=== PATIENT | female | born 1990 | race Caucasian/White ===

== ENCOUNTER 2018-10-27 04:23 | Inpatient (IN) | payer OTHER ==
[2018-10-27] MEDS ORDERED: MAG HYDROX/AL HYDROX/SIMETH 30 ML UNIT-DOSE CUP PO ONE (04:36)
[2018-10-27] MEDS ORDERED: morphine CARPU-JECT 2 MG/1 ML DISP.SYRIN IVPUSH ONE (04:36)
[2018-10-27] MEDS ORDERED: SODIUM CHLORIDE 0.9% 500 ML INFUS.BAG IV ONE (04:36)
--- NOTE | 2018-10-27 04:37 | PDOC ---
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 She ate pizza, ice cream and cheese doodles and she likely has gas or biliary colic. Her dad had his GB removed. Pt had her appy removed Timing/Duration: momentarily, 1/2 hour Severity: severe Associated Symptoms: reports: chest pain Past History - Travel Traveled outside of the country in the last 30 days: No Close contact w/someone who was outside of country & ill: No - Past Medical History Allergies/Adverse Reactions: Allergies Allergy/AdvReac Type Severity Reaction Status Date / Time No Known Allergies Allergy Verified 10/27/18 04:58 Home Medications: Ambulatory Orders NK [No Known Home Medication] 10/27/18 - Surgical History Abdominal Surgery: Yes Appendectomy: Yes (2012) - Suicide/Smoking/Psychosocial Hx Smoking History: Never smoked Have you smoked in the past 12 months: No Number of Cigarettes Smoked Daily: 2 Hx Alcohol Use: No Drug/Substance Use Hx: No Substance Use Type: None Review of Systems - Review of Systems Constitutional: No: Symptoms Reported, See HPI, Chills, Diaphoresis, Fever, Loss of Appetite, Malaise, Night Sweats, Weakness, Weight Stable, Unintentional Wgt. Loss, Unexplained wgt Loss, Other HEENTM: No: Symptoms Reported, See HPI, Eye Pain, Blurred Vision, Tearing, Recent change in vision, Double Vision, Cataracts, Ear Pain, Ocular Prothesis, Ear Discharge, Nose Pain, Nose Congestion, Tinnitus, Nose Bleeding, Hearing Loss , Throat Pain, Throat Swelling, Mouth Pain, Dental Problems, Difficulty Swallowing, Mouth Swelling, Other Respiratory: No: Symptoms reported, See HPI, Cough, Orthopnea, Shortness of Breath, SOB with Exertion, SOB at Rest, Stridor, Wheezing, Productive cough, Hemoptysis, Other Cardiac (ROS): Yes: Chest Pain. No: Symptoms Reported, See HPI, Edema, Irregular Heart Rate, Lightheadedness, Palpitations, Syncope, Chest Tightness, Other ABD/GI: Yes: Abdominal cramping. No: Symptoms Reported, See HPI, Abdominal Distended, Abd. Pain w/ defecation, Blood Streaked Bowels, Constipated, Diarrhea , Difficulty Swallowing, Nausea, Poor Appetite, Poor Fluid Intake, Rectal Bleeding, Vomiting, Indigestion, Tarry Stools, Other : No: Symptoms Reported, See HPI, Burning, Dysuria, Discharge, Frequency, Flank Pain, Hematuria, Incontinence, Pain, Urgency, Testicular Mass, Testicular Swelling, Lesions, Testicular Pain, Other Musculoskeletal: No: Symptoms Reported, See HPI, Back Pain, Gout, Joint Pain, Joint Swelling, Muscle Pain, Muscle Weakness, Neck Pain, Joint Stiffness, Other Integumentary: No: Symptoms Reported, See HPI, Bruising, Change in Color, Change in Hair/Nails, Dryness, Erythema, Flushing, Lesions, Lumps, Pallor, Pruritus, Rash, Sweating, Other Neurological: No: Symptoms reported, See HPI, Headache, Numbness, Paresthesia, Pre-Existing Deficit, Seizure, Tingling, Tremors, Weakness, Unsteady Gait, Ataxia, Dizziness, Other *Physical Exam - Physical Exam General Appearance: Yes: Nourished, Appropriately Dressed, Severe Distress HEENT: positive: EOMI, TAMIR, Normal ENT Inspection, Normal Voice, Symmetrical, TMs Normal, Pharynx Normal Neck: positive: Trachea midline, Normal Thyroid, Supple Respiratory/Chest: positive: Chest Tender, Lungs Clear, Normal Breath Sounds Cardiovascular: positive: Regular Rhythm, Regular Rate, S1, S2 Gastrointestinal/Abdominal: positive: Flat, Soft, Organomegaly Musculoskeletal: positive: Normal Inspection Extremity: positive: Normal Capillary Refill, Normal Inspection, Normal Range of Motion Integumentary: positive: Normal Color, Dry, Warm Neurologic: positive: consultant technology II-XII NML intact, Fully Oriented, Alert, Normal Mood/ Affect Heart Score/ECG Review - ECG Intrepretation Rhythm: Regular Rhythm - [place]: Normal - P and RI Prominent R with upright T in V1 (true posterior IL): No Delta Wave(s) Present: No - QRS Poor R Wave Progression: No Q Wave Present: No - ST and T Flattened T Waves: No Prolonged Q-T Interval: No - ECG Impressions Normal ECG: Yes Non-specific ST Elevation: No Ischemic Changes: No Bradycardia: No Torsades cr Pointes: No WPW: No ED Treatment Course - LABORATORY CBC & Chemistry Diagram: 10/27/18 11:15 10/27/18 05:00 Medical Decision Making - Medical Decision Making 10/27/18 05:18 Pt was treated with morphine, maalox and NSS; She was feeling better for a bit, but in pain again. She has pain in the LUQ at this time. Pain is likely due to gas; Pt will be treated with bentyl 10/27/18 05:36 LFTs normal; chem normal; pt has lactic acid of 2.1/ HCG normal bedside sono normal. 10/27/18 05:46 Cardiac enzyme is normal 10/28/18 02:04 Pt will be signed out to the day team. She is awaiting an official sono of her GB. Then she will be stable to go home. *DC/Admit/Observation/Transfer Diagnosis at time of Disposition: Symptomatic cholelithiasis - Discharge Dispostion Condition at time of disposition: Fair - Referrals - Patient Instructions - Post Discharge Activity
[2018-10-27] MEDS ORDERED: MORPHINE SULFATE 2 MG/ML VIAL ONE ×2 (04:48→10:44)
[2018-10-27] MEDS ORDERED: MAG HYDROX/AL HYDROX/SIMETH 30 ML UNIT-DOSE CUP ONE (04:49)
[2018-10-27 05:06] LABS: BASO % 0.5 % (0-2.0); EOS % 3.5 % (0-4.5); HEMATOCRIT 43.7 % (32.4-45.2); HEMOGLOBIN 14.4 GM/dL (10.7-15.3); LYMPH % 38.5 % (8-40); MCH 29.1 pg (25.7-33.7); MCHC 32.9 g/dl (32.0-36.0); MEAN CELL VOLUME 88.5 fl (80-96); MEAN PLT VOLUME 8.1 fl (7.5-11.1); MONO % 8.7 % (3.8-10.2); NEUT % 48.8 % (42.8-82.8); PLATELET COUNT 315 K/MM3 (134-434); RBC 4.94 M/mm3 (3.60-5.2); RDW 13.2 % (11.6-15.6); WHITE BLOOD COUNT 9.9 K/mm3 (4.0-10.0)
[2018-10-27] MEDS ORDERED: DICYCLOMINE HCL 20 MG TABLET PO ONE (05:15)
[2018-10-27 05:19] LABS: INR 1.05 (0.83-1.09); PROTHROMBIN TIME (PATIENT) 12.4 SEC (9.7-13.0)
[2018-10-27] MEDS ORDERED: FAMOTIDINE 20 MG/50 ML IVPB 20 MG/50 ML MG IVPB ONE ×2 (05:19→05:27)
[2018-10-27] MEDS ORDERED: DICYCLOMINE HCL 10 MG CAPSULE ONE (05:26)
[2018-10-27 05:34] LABS: ALBUMIN 3.8 g/dl (3.4-5.0); ALK PHOS 114 U/L (45-117); ANION GAP 9 MMOL/L (8-16); BILIRUBIN,TOTAL 0.6 mg/dL (0.2-1); BLOOD UREA NITROGEN 13 mg/dL (7-18); CALCIUM 9.2 mg/dL (8.5-10.1); CHLORIDE 104 mmol/L (98-107); CO2 26 mmol/L (21-32); CREATININE 0.8 mg/dL (0.55-1.3); GLUCOSE,RANDOM 88 mg/dL (74-106); POTASSIUM 3.5 mmol/L (3.5-5.1); SGOT/AST 20 U/L (15-37); SGPT/ALT 23 U/L (13-61); SODIUM 139 mmol/L (136-145); TOT PROT 7.8 g/dl (6.4-8.2)
--- NOTE | 2018-10-27 07:17 | PDOC ---
*Physical Exam - Vital Signs Last Vital Signs Temp Pulse Resp BP Pulse Ox 97.6 F 84 20 138/80 100 10/27/18 04:30 10/27/18 04:30 10/27/18 04:30 10/27/18 04:30 10/27/18 04:30 - Physical Exam Comments: 10/27/18 08:08 Gen: aaox3, uncomfortable heart: +s1s2 reg lungs: cta b/l abd: soft, mild epigastric ttp, no rebound or guarding, no cva ttp ext: no c/c/e, ambulates with a steady gait ED Treatment Course - LABORATORY CBC & Chemistry Diagram: 10/27/18 05:00 10/27/18 05:00 - ADDITIONAL ORDERS Additional order review: Laboratory Results 10/27/18 10/27/18 10/27/18 05:00 05:00 05:00 PT with INR 12.40 INR 1.05 Sodium Potassium Chloride Carbon Dioxide Anion Gap BUN Creatinine Creat Clearance w eGFR Random Glucose Lactic Acid Calcium Total Bilirubin AST ALT Alkaline Phosphatase Creatine Kinase 136 Troponin I < 0.02 Total Protein Albumin Beta HCG, Quant Blood Type B POSITIVE Antibody Screen Negative 10/27/18 10/27/18 10/27/18 05:00 05:00 05:00 PT with INR INR Sodium 139 Potassium 3.5 Chloride 104 Carbon Dioxide 26 Anion Gap 9 BUN 13 Creatinine 0.8 Creat Clearance w eGFR > 60 Random Glucose 88 Lactic Acid 2.1 H Calcium 9.2 Total Bilirubin 0.6 AST 20 ALT 23 Alkaline Phosphatase 114 Creatine Kinase Troponin I Total Protein 7.8 Albumin 3.8 Beta HCG, Quant < 1.0 Blood Type Antibody Screen 10/27/18 05:00 RBC 4.94 MCV 88.5 MCHC 32.9 RDW 13.2 MPV 8.1 Neutrophils % 48.8 Lymphocytes % 38.5 D Monocytes % 8.7 Eosinophils % 3.5 Basophils % 0.5 - Medications Given in the ED: ED Medications Discontinued Medications Generic Name Dose Route Start Last Admin Trade Name Freq PRN Reason Stop Dose Admin Al Hydroxide/Mg Hydroxide 30 ml 10/27/18 04:36 10/27/18 05:01 Mylanta Oral Suspension - PO 10/27/18 04:37 30 ml ONCE ONE Administration Dicyclomine HCl 20 mg 10/27/18 05:15 10/27/18 05:32 Bentyl - PO 10/27/18 05:16 20 mg ONCE ONE Administration Famotidine/Sodium Chloride 20 mg in 50 mls @ 100 mls/hr 10/27/18 05:19 05:32 Pepcid 20 Mg Premixed Ivpb - IVPB 10/27/18 05:48 100 mls/hr ONCE ONE Administration Morphine Sulfate 2 mg 10/27/18 04:36 10/27/18 05:01 Morphine Injection - IVPUSH 10/27/18 04:37 2 mg ONCE ONE Administration Sodium Chloride 1,000 ml 10/27/18 04:36 10/27/18 05:01 Normal Saline - IV 10/27/18 04:37 1,000 ml ONCE ONE Administration Medical Decision Making - Medical Decision Making 10/27/18 07:16 27yo female with cp -pt labs show mildly elevated lactate will repeat pt signed out pending ultrasound findings 10/27/18 09:56 pt with gallstones on ultrasound- cholelithiasis pt still with pain, no longer nauseated, but still ttp RUQ and epigastric region case discussed with Dr. Chavez - will see pt in consult. plan for cholecystectomy tomorrow, npo after midnight clear liquids today case discussed with ANDRY who accepts pt to service 10/27/18 09:59 pt updated and agrees to stay for surgery *DC/Admit/Observation/Transfer Diagnosis at time of Disposition: Symptomatic cholelithiasis - Discharge Dispostion Condition at time of disposition: Fair Decision to Admit order: Yes - Referrals Referrals: Alla Sanford MD [Primary Care Provider] - - Patient Instructions - Post Discharge Activity
[2018-10-27] MEDS ORDERED: PANTOPRAZOLE SODIUM 40 MG VIAL IVPUSH ONE (08:00)
[2018-10-27] MEDS ORDERED: ONDANSETRON 4 MG/2 ML VIAL IVPUSH ONE (08:00)
[2018-10-27] MEDS ORDERED: PANTOPRAZOLE SODIUM 40 MG/100 ML BAG IVPB ONE (08:07)
[2018-10-27] MEDS ORDERED: ONDANSETRON 4 MG/2 ML VIAL ONE ×2 (08:07→08:08)
[2018-10-27 09:19] LABS: URINE APPEARANCE CLEAR; URINE BILIRUBIN NEGATIVE (<2.0 mg/dL); URINE COLOR LTYELLOW; URINE GLUCOSE (UA) 1+ (NEGATIVE); URINE KETONE TRACE (NEGATIVE); URINE LEUK ESTERASE NEGATIVE (NEGATIVE); URINE NITRITE NEGATIVE (NEGATIVE); URINE PROTEIN NEGATIVE (NEGATIVE); URINE UROBILINOGEN NEGATIVE mg/dL (0.2-1.0)
[2018-10-27] MEDS ORDERED: SODIUM CHLORIDE 1,000 ML IV SCH ×2 (10:00→10:18)
[2018-10-27] MEDS ORDERED: MORPHINE SULFATE 2 MG/ML VIAL IVPUSH PRN (10:17)
--- NOTE | 2018-10-27 10:52 | HP ---
CHIEF COMPLAINT: RUQ/epigastric pain PCP:Dr. Sanford HISTORY OF PRESENT ILLNESS: Patient is a 27 year old female with no significant past medical history presented with sudden onset cramping RUQ/epigastric pain that started last night. Patient reported she had pizza, soft drinks and chips last night. A few hours after, developed sudden onset 10/10 cramping, nonradiating RUQ/epigastric pain. The pain persisted overnight, patient was unable to sleep, so she came to the ED. At the ED, patient had 1 episode of NBNB vomiting. Otherwise, she denies fever, chills, headache, dizziness, chest pain, SOB, diarrhea, constipation, urinary symptoms. ER course was notable for: (1)IV Morphine 4mg, Zofran 4mg, Maalox 30ml, Pepcid 20mg, Bentyl 20mg (2)IV NS bolusx1 (3)RUQ US - Cholelithiasis. Gallbladder sludge and debris. Recent Travel:None PAST MEDICAL HISTORY: Non-contributory PAST SURGICAL HISTORY: Appendectomy (2011) Social History: Smoking:denies Alcohol:occasional EtOH use Drugs: denies Works as a physical security manager. Lives with family. Family History: Non-contributory. Reports both parents are healthy. Allergies: No Known Allergies Allergy (Verified 10/27/18 04:58) HOME MEDICATIONS: Home Medications Medication Instructions Recorded Nitrofurantoin Monohyd/M-Cryst 100 mg PO BID #14 capsule 08/26/16 [Macrobid -] Pseudoephedrine HCl [Sudafed 120 mg PO BID #10 tablet.er MDD 2 08/26/16 12-Hour] REVIEW OF SYSTEMS CONSTITUTIONAL: Absent: fever, chills, diaphoresis, generalized weakness, malaise, loss of appetite, weight change HEENT: Absent: rhinorrhea, nasal congestion, throat pain, throat swelling, difficulty swallowing, mouth swelling, ear pain, eye pain, visual changes CARDIOVASCULAR: Absent: chest pain, syncope, palpitations, irregular heart rate, lightheadedness , peripheral edema RESPIRATORY: Absent: cough, shortness of breath, dyspnea with exertion, orthopnea, wheezing, stridor, hemoptysis GASTROINTESTINAL: Absent: abdominal pain, abdominal distension, nausea, vomiting, diarrhea, constipation, melena, hematochezia GENITOURINARY: Absent: dysuria, frequency, urgency, hesitancy, hematuria, flank pain, genital pain MUSCULOSKELETAL: Absent: myalgia, arthralgia, joint swelling, back pain, neck pain SKIN: Absent: rash, itching, pallor HEMATOLOGIC/IMMUNOLOGIC: Absent: easy bleeding, easy bruising, lymphadenopathy, frequent infections ENDOCRINE: Absent: unexplained weight gain, unexplained weight loss, heat intolerance, cold intolerance NEUROLOGIC: Absent: headache, focal weakness or paresthesias, dizziness, unsteady gait, seizure, mental status changes, bladder or bowel incontinence PSYCHIATRIC: Absent: anxiety, depression, suicidal or homicidal ideation, hallucinations. PHYSICAL EXAMINATION Vital Signs - 24 hr 10/27/18 10/27/18 04:25 04:30 Temperature 97.4 F L 97.6 F Pulse Rate 84 Pulse Rate [ 84 Left Radial] Respiratory 22 H 20 Rate Blood Pressure 138/80 Blood Pressure 138/80 [Right Arm] O2 Sat by Pulse 100 100 Oximetry (%) GENERAL: Awake, alert, and fully oriented, in no acute distress. HEAD: Normal with no signs of trauma. EYES: PERRLA, EOMI, sclera anicteric, conjunctiva clear. EARS, NOSE, THROAT: Ears normal, nares patent, oropharynx clear without exudates. Moist mucous membranes. NECK: Normal range of motion, supple without lymphadenopathy, JVD, or masses. LUNGS: Breath sounds equal, clear to auscultation bilaterally. HEART: Regular rate and rhythm, normal S1 and S2 without murmur, rub or gallop. ABDOMEN: Soft, +RUQ/epigastric tenderness, not distended, normoactive bowel sounds, no guarding, no masses. No hepatomegaly or splenomegaly. MUSCULOSKELETAL: Normal range of motion at all joints. No bony deformities or tenderness. No CVA tenderness. UPPER EXTREMITIES: 2+ pulses, warm, well-perfused. No cyanosis. No clubbing. No peripheral edema. LOWER EXTREMITIES: 2+ pulses, warm, well-perfused. No calf tenderness. No peripheral edema. NEUROLOGICAL: Cranial nerves II-XII intact. Normal speech. Gait not observed. PSYCHIATRIC: Cooperative. Good eye contact. Appropriate mood and affect. SKIN: Warm, dry, normal turgor, no rashes or lesions noted, normal capillary refill. Laboratory Results - last 24 hr 10/27/18 10/27/18 10/27/18 05:00 05:00 05:00 WBC 9.9 RBC 4.94 Hgb 14.4 Hct 43.7 MCV 88.5 MCH 29.1 MCHC 32.9 RDW 13.2 Plt Count 315 MPV 8.1 Absolute Neuts (auto) 4.8 Neutrophils % 48.8 Lymphocytes % 38.5 D Monocytes % 8.7 Eosinophils % 3.5 Basophils % 0.5 Nucleated RBC % 0 PT with INR INR Sodium 139 Potassium 3.5 Chloride 104 Carbon Dioxide 26 Anion Gap 9 BUN 13 Creatinine 0.8 Creat Clearance w eGFR > 60 Random Glucose 88 Lactic Acid Calcium 9.2 Total Bilirubin 0.6 AST 20 ALT 23 Alkaline Phosphatase 114 Creatine Kinase Troponin I Total Protein 7.8 Albumin 3.8 Beta HCG, Quant < 1.0 Urine Color Urine Appearance Urine pH Ur Specific [place] Urine Protein Urine Glucose (UA) Urine Ketones Urine Blood Urine Nitrite Urine Bilirubin Urine Urobilinogen Ur Leukocyte Esterase Blood Type Antibody Screen 10/27/18 10/27/18 10/27/18 05:00 05:00 05:00 WBC RBC Hgb Hct MCV MCH MCHC RDW Plt Count MPV Absolute Neuts (auto) Neutrophils % Lymphocytes % Monocytes % Eosinophils % Basophils % Nucleated RBC % PT with INR 12.40 INR 1.05 Sodium Potassium Chloride Carbon Dioxide Anion Gap BUN Creatinine Creat Clearance w eGFR Random Glucose Lactic Acid 2.1 H Calcium Total Bilirubin AST ALT Alkaline Phosphatase Creatine Kinase Troponin I Total Protein Albumin Beta HCG, Quant Urine Color Urine Appearance Urine pH Ur Specific [place] Urine Protein Urine Glucose (UA) Urine Ketones Urine Blood Urine Nitrite Urine Bilirubin Urine Urobilinogen Ur Leukocyte Esterase Blood Type B POSITIVE Antibody Screen Negative 10/27/18 10/27/18 05:00 09:00 WBC RBC Hgb Hct MCV MCH MCHC RDW Plt Count MPV Absolute Neuts (auto) Neutrophils % Lymphocytes % Monocytes % Eosinophils % Basophils % Nucleated RBC % PT with INR INR Sodium Potassium Chloride Carbon Dioxide Anion Gap BUN Creatinine Creat Clearance w eGFR Random Glucose Lactic Acid Calcium Total Bilirubin AST ALT Alkaline Phosphatase Creatine Kinase 136 Troponin I < 0.02 Total Protein Albumin Beta HCG, Quant Urine Color Ltyellow Urine Appearance Clear Urine pH 6.0 Ur Specific [place] 1.016 Urine Protein Negative Urine Glucose (UA) 1+ H Urine Ketones Trace H Urine Blood Negative Urine Nitrite Negative Urine Bilirubin Negative Urine Urobilinogen Negative Ur Leukocyte Esterase Negative Blood Type Antibody Screen ASSESSMENT/PLAN: Patient is a 27 year old female with no significant past medical history presented with sudden onset cramping RUQ/epigastric pain that started last night. #Cholelithiasis, possible Acute cholecystitis -repeat CBC: Leukocytosis (14.8) with left shift -RUQ US: Cholelithiasis. Gallbladder sludge and debris -IV LR @100ml/hr -IV Morphine 2mg q3h PRN for pain. -Surgery (Dr. Chavez) consulted. Recommendations appreciated. -For OR tomorrow. -Clear liquid diet for now. NPO after midnight. -ID (Dr. Weems) consulted. Recommendations appreciated. -Start IV Zosyn 3.375 gm q8h #Lactic acidosis: resolved -likely from dehydration -IV fluids given -repeat lactic acid: 2.1 --> 1.0 #FEN -IV LR @ 100 -electrolytes wnl, routine bmp monitoring -Clear liquid diet now. NPO after midnight. #Prophylaxis -TEDs, both legs -early ambulation #Disposition -full code -admit to med surg Visit type - Emergency Visit Emergency Visit: Yes ED Registration Date: 10/27/18 Care time: The patient presented to the Emergency Department on the above date and was hospitalized for further evaluation of their emergent condition. - New Patient This patient is new to me today: Yes Date on this admission: 10/27/18 - Critical Care Critical Care patient: No
[2018-10-27] MEDS: LACTATED RINGERS SOLUTION 1,000 ML/1,000 ML INFUS.BAG IV SCH ×2 (11:02→18:17)
[2018-10-27] MEDS: MORPHINE SULFATE 2 MG/ML VIAL IVPUSH PRN ×2 (11:03→19:09)
[2018-10-27 11:43] LABS: BASO % 0.2 % (0-2.0); HEMATOCRIT 40.1 % (32.4-45.2); HEMOGLOBIN 13.7 GM/dL (10.7-15.3); LYMPH % 4.1 % (8-40); MCH 30.1 pg (25.7-33.7); MCHC 34.1 g/dl (32.0-36.0); MEAN CELL VOLUME 88.3 fl (80-96); MONO % 3.7 % (3.8-10.2); PLATELET COUNT 291 K/MM3 (134-434); RBC 4.54 M/mm3 (3.60-5.2); RDW 13.3 % (11.6-15.6); WHITE BLOOD COUNT 14.8 K/mm3 (4.0-10.0)
--- NOTE | 2018-10-27 12:11 | PN ---
Teaching Attending Note Name of Resident: Tanya Marcus ATTENDING PHYSICIAN STATEMENT I saw and evaluated the patient. I reviewed the resident's note and discussed the case with the resident. I agree with the resident's findings and plan as documented. SUBJECTIVE: Patient is a 27yo female presented with Acute RUQ pain. Patient stated that she had a Pizza before the attack. Patient is not able to sit still due to having pain. OBJECTIVE: Vital Signs Temperature 97.7 F 10/27/18 11:04 Pulse Rate 52 L 10/27/18 11:04 Respiratory Rate 16 10/27/18 11:04 Blood Pressure 100/63 10/27/18 11:04 O2 Sat by Pulse Oximetry (%) 99 10/27/18 11:04 GENERAL: Awake, alert, and fully oriented, in no acute distress. HEAD: Normal with no signs of trauma. EYES: PERRLA, EOMI, sclera anicteric, conjunctiva clear. EARS, NOSE, THROAT: Ears normal, oropharynx clear without exudates. Moist mucous membranes. NECK: Normal range of motion, supple without lymphadenopathy, JVD, or masses. LUNGS: Breath sounds equal, clear to auscultation bilaterally. HEART: Regular rate and rhythm, normal S1 and S2 without murmur, rub or gallop. ABDOMEN: Soft, RUQ tenderness, not distended, normoactive bowel sounds, no guarding, no masses. No hepatomegaly or splenomegaly. MUSCULOSKELETAL: Normal range of motion at all joints. No bony deformities or tenderness. No CVA tenderness. EXTREMITIES: 2+ pulses, warm, well-perfused. No cyanosis. No clubbing. No peripheral edema. NEUROLOGICAL: Cranial nerves II-XII intact. Normal speech. Gait not observed. PSYCHIATRIC: Cooperative. Good eye contact. Appropriate mood and affect. SKIN: Warm, dry, normal turgor, no rashes or lesions noted, normal capillary refill. CBCD WBC 14.8 K/mm3 (4.0-10.0) H 10/27/18 11:15 RBC 4.54 M/mm3 (3.60-5.2) 10/27/18 11:15 Hgb 13.7 GM/dL (10.7-15.3) 10/27/18 11:15 Hct 40.1 % (32.4-45.2) 10/27/18 11:15 MCV 88.3 fl (80-96) 10/27/18 11:15 MCHC 34.1 g/dl (32.0-36.0) 10/27/18 11:15 RDW 13.3 % (11.6-15.6) 10/27/18 11:15 Plt Count 291 K/MM3 (134-434) 10/27/18 11:15 MPV 8.0 fl (7.5-11.1) 10/27/18 11:15 CMP Sodium 139 mmol/L (136-145) 10/27/18 05:00 Potassium 3.5 mmol/L (3.5-5.1) 10/27/18 05:00 Chloride 104 mmol/L (98-107) 10/27/18 05:00 Carbon Dioxide 26 mmol/L (21-32) 10/27/18 05:00 Anion Gap 9 MMOL/L (8-16) 10/27/18 05:00 BUN 13 mg/dL (7-18) 10/27/18 05:00 Creatinine 0.8 mg/dL (0.55-1.3) 10/27/18 05:00 Creat Clearance w eGFR > 60 (>60) 10/27/18 05:00 Random Glucose 88 mg/dL (74-106) 10/27/18 05:00 Calcium 9.2 mg/dL (8.5-10.1) 10/27/18 05:00 Total Bilirubin 0.6 mg/dL (0.2-1) 10/27/18 05:00 AST 20 U/L (15-37) 10/27/18 05:00 ALT 23 U/L (13-61) 10/27/18 05:00 Alkaline Phosphatase 114 U/L (45-117) 10/27/18 05:00 Total Protein 7.8 g/dl (6.4-8.2) 10/27/18 05:00 Albumin 3.8 g/dl (3.4-5.0) 10/27/18 05:00 CARDIAC ENZYMES Creatine Kinase 136 IU/L (26-192) 10/27/18 05:00 Troponin I < 0.02 ng/ml (0.00-0.05) 10/27/18 05:00 Current Medications Generic Name Dose Route Start Last Admin Trade Name Freq PRN Reason Stop Dose Admin Lactated Ringer's 1,000 ml in 1,000 mls @ 100 mls/hr 10/27/18 11:00 10/27/18 11:02 Lactated Ringers Solution IV 100 mls/hr ASDIR GUSTAVO Administration Morphine Sulfate 2 mg 10/27/18 10:18 10/27/18 11:03 Morphine Sulfate IVPUSH 2 mg Q3H PRN Administration PAIN LEVEL 6-10 Home Medications Medication Instructions Recorded NK [No Known Home Medication] 10/27/18 ASSESSMENT AND PLAN: Patient is a 27 year old female with no significant past medical history presented with sudden onset of RUQ pain after having Pizza last night. #Acute cholelithiasis, cannot r/o cholecystitis. US report multiple stones with sludge. will get surgery to see the patient and start the patient on IV antibiotics Zosyn , ID on consult. IV LR @100ml/hr, IV Morphine 2mg q3h PRN for pain. To OR tomorrow. NPO after midnight. #Lactic acidosis likely from dehydration, will repeat the level. DVT Prophylaxis: SCds, Teds both legs, early ambulation. low risk full code, admit to med surg.
[2018-10-27] MEDS ORDERED: PIPERACILLIN/TAZOB 3.375 GM 3.375 GM in DEXTROSE 5%-WATER - 50 ML IVPB SCH ×2 (12:15→12:30)
[2018-10-27 14:47] LABS: ANISOCYTOSIS 0; MACROCYTOSIS 0; PLATELET ESTIMATE NORMAL
--- NOTE | 2018-10-27 17:17 | CONSULT ---
- Consultation REQUESTING PROVIDER: Arun Barros MD CONSULT REQUEST: We have been asked to surgically evaluate this patient for abdominal pain PCP:Ryan Brantley HISTORY OF PRESENT ILLNESS: CTSP for evaluation and management of postprandial epigastric and RUQ pain w/radiation to her back which started yesterday; this occurred after eating pizza; she may have had this last week after eating other greasy food; it resolved spontaneously; she came today because the pain and associated nausea and vomiting were worse and were not improving on their own; she has NOC; she denies any other GI//[employer] c/o. PMHx: none PSHx: none Home Medications Medication Instructions Recorded NK [No Known Home Medication] 10/27/18 Allergies Allergy/AdvReac Type Severity Reaction Status Date / Time No Known Allergies Allergy Verified 10/27/18 04:58 PHYSICAL EXAM: GENERAL: Awake, alert, and fully oriented, in slight acute distress. HEAD: Normal with no signs of trauma. EYES: sclera anicteric, conjunctiva clear. NECK: Normal ROM, supple without lymphadenopathy, JVD, or masses. ABDOMEN: Soft, tender RUQ w/guarding, not distended, normoactive bowel sounds, no rebound, no masses. No organomegaly. No hernias MUSCULOSKELETAL: Normal ROM at all joints. No bony deformities or tenderness. No CVA tenderness. UPPER EXTREMITIES: 2+ pulses, warm, well-perfused. No cyanosis. Cap refill <2 seconds. No peripheral edema. LOWER EXTREMITIES: 2+ pulses, warm, well-perfused. No calf tenderness. No peripheral edema. NEUROLOGICAL: Normal speech, gait not observed. PSYCH: Cooperative. Good eye contact. Appropriate mood and affect. SKIN: Warm, dry, normal turgor, no rashes or lesions noted. Vital Signs Temperature 98.6 F 10/27/18 15:45 Pulse Rate 68 10/27/18 15:45 Respiratory Rate 16 10/27/18 15:45 Blood Pressure 114/75 10/27/18 15:45 O2 Sat by Pulse Oximetry (%) 100 10/27/18 15:45 Lab Results WBC 14.8 K/mm3 (4.0-10.0) H 10/27/18 11:15 RBC 4.54 M/mm3 (3.60-5.2) 10/27/18 11:15 Hgb 13.7 GM/dL (10.7-15.3) 10/27/18 11:15 Hct 40.1 % (32.4-45.2) 10/27/18 11:15 MCV 88.3 fl (80-96) 10/27/18 11:15 MCHC 34.1 g/dl (32.0-36.0) 10/27/18 11:15 RDW 13.3 % (11.6-15.6) 10/27/18 11:15 Plt Count 291 K/MM3 (134-434) 10/27/18 11:15 Sodium 139 mmol/L (136-145) 10/27/18 05:00 Potassium 3.5 mmol/L (3.5-5.1) 10/27/18 05:00 Chloride 104 mmol/L (98-107) 10/27/18 05:00 Carbon Dioxide 26 mmol/L (21-32) 10/27/18 05:00 Anion Gap 9 MMOL/L (8-16) 10/27/18 05:00 BUN 13 mg/dL (7-18) 10/27/18 05:00 Creatinine 0.8 mg/dL (0.55-1.3) 10/27/18 05:00 Random Glucose 88 mg/dL (74-106) 10/27/18 05:00 Calcium 9.2 mg/dL (8.5-10.1) 10/27/18 05:00 Blood Type B POSITIVE 10/27/18 11:15 Antibody Screen Negative 10/27/18 05:00 INR 1.05 (0.83-1.09) 10/27/18 05:00 imaging w/u reviewed IMP:cholelithiasis; symptomatic biliary colic; possible clinical acute cholecystitis PLAN: Admit/NPO/IVF/IVABS; for lap [place] possible open as definitive tx. ; r/b/t/a's d/w the patient and her fiance; retained stones and their tx. discussed as well; informed consent to be obtained. Braeden Chavez MD FACS
[2018-10-27] MEDS ORDERED: PIPERACILLIN/TAZOBACTAM 3.375 GM VIAL IVPB ONE ×2 (18:14→20:54)
[2018-10-27] MEDS ORDERED: DEXTROSE 5%-WATER - 50 ML IVPB ONE ×2 (18:14→20:54)
--- NOTE | 2018-10-27 18:15 | PN ---
Progress Note (short form) - Note Progress Note: ID CONSULT DICTATED ACUTE CHOLECYSTITIS LEUKOCYTOSIS R/O BILIARY SEPSIS AWAIT C/S CONTINUE ZOSYN FOR CHOLECYSTECTOMY
[2018-10-27] MEDS: PIPERACILLIN/TAZOB 3.375 GM 3.375 GM in DEXTROSE 5%-WATER - 50 ML IVPB SCH (18:17)
[2018-10-27 18:41] VITALS: BMI 31.3
--- NOTE | 2018-10-27 20:17 | CONS ---
INFECTIOUS DISEASE CONSULTATION DATE OF CONSULTATION: DATE OF DICTATION: 10/27/2018 HISTORY: The patient is a 27-year-old female who was evaluated for cholecystitis. She was admitted through the emergency room today after presenting with postprandial chest pain. The patient consumed a meal consisting of pizza, soft drink and chips. A few hours later she developed the sudden onset of chest pain, later described as localized to the epigastrium and right upper quadrant. It persisted overnight and she was unable to sleep. She went to the emergency room. She had 1 episode of nonbilious, nonbloody vomiting. In the emergency room she was afebrile; however, in moderate distress secondary to the abdominal pain. A sonogram was performed and showed gallbladder stones and sludge but no dilated ducts. She was seen in consultation by Surgery and scheduled to have a cholecystectomy tomorrow. At the present time she is awake and alert. She is in moderate distress secondary to pain. However, she does have relief with analgesics. PAST MEDICAL HISTORY: Negative. PAST SURGICAL HISTORY: Status post appendectomy. ALLERGIES: No known. SOCIAL HISTORY: Occasional ETOH. No smoking history. Works as a security shift supervisor. SYSTEMS REVIEW:Neurologic: No loss of consciousness, seizure activity or focal weakness. Cardiac: Negative for chest pain or palpitations. Respiratory: Negative for cough or sputum production. Gastrointestinal: As per HPI. Genitourinary: Negative for urinary tract infection. LABORATORY DATA: White 14.8 with left shift, hematocrit 40.1, platelet count 291. Creatinine 0.8. Urine leukocyte esterase negative. Liver enzymes normal. Lipase 223. EXAM: General: She is lying on the stretcher in no acute distress at rest. Vital Signs: Temperature 97.7, blood pressure 108/63, pulse 52, regular, respirations 16 per minute. HEENT: Sclerae anicteric. Cardiovascular: Heart sounds S1, S2. Lungs: Clear. Abdomen: Obese. There is right upper quadrant and epigastric tenderness to palpation, positive Metcalf sign. Extremities: Negative for edema. No rashes noted. IMPRESSION: 1. Acute cholecystitis. 2. Leukocytosis, rule out biliary sepsis. PLAN: Await culture results. Appreciate surgical evaluation. Patient for cholecystectomy in a.m. Pending cultures, empiric coverage of biliary tract pathogens with Zosyn 3.37 g IV piggyback every 8 hours, analgesics as needed. Thank you for the kind referral. ALONA JARAMILLO M.D. [id number]
[2018-10-28] MEDS ORDERED: DEXTROSE 5%-WATER - 50 ML IVPB ONE ×3 (00:39→16:41)
[2018-10-28] MEDS ORDERED: PIPERACILLIN/TAZOBACTAM 3.375 GM VIAL IVPB ONE ×3 (00:39→16:41)
[2018-10-28] MEDS: PIPERACILLIN/TAZOB 3.375 GM 3.375 GM in DEXTROSE 5%-WATER - 50 ML IVPB SCH ×3 (02:15→17:08)
[2018-10-28] MEDS: MORPHINE SULFATE 2 MG/ML VIAL IVPUSH PRN (06:12)
--- NOTE | 2018-10-28 07:16 | EKG ---
Test Reason : Blood Pressure : / mmHG Vent. Rate : 064 BPM Atrial Rate : 064 BPM P-R Int : 162 ms QRS Dur : 078 ms QT Int : 384 ms P-R-T Axes : 050 058 051 degrees QTc Int : 396 ms SINUS RHYTHM WITH MARKED SINUS ARRHYTHMIA OTHERWISE NORMAL ECG NO PREVIOUS ECGS AVAILABLE Confirmed by CANDACE BERRIOS, GEORGINA ([id number]) on 10/28/2018 7:16:28 AM Referred By: Confirmed By:GEORGINA MARIA MD
[2018-10-28 09:09] LABS: BASO % 0.2 % (0-2.0); EOS % 0.5 % (0-4.5); HEMATOCRIT 40.9 % (32.4-45.2); HEMOGLOBIN 13.2 GM/dL (10.7-15.3); LYMPH % 19.1 % (8-40); MCH 28.7 pg (25.7-33.7); MCHC 32.3 g/dl (32.0-36.0); MEAN CELL VOLUME 88.8 fl (80-96); MEAN PLT VOLUME 8.3 fl (7.5-11.1); MONO % 9.9 % (3.8-10.2); NEUT % 70.3 % (42.8-82.8); PLATELET COUNT 315 K/MM3 (134-434); RBC 4.61 M/mm3 (3.60-5.2); RDW 13.6 % (11.6-15.6); WHITE BLOOD COUNT 13.8 K/mm3 (4.0-10.0)
[2018-10-28] MEDS ORDERED: LIDOCAINE HCL 1%, 10 MG/ML (20ML VIAL) ONE (09:22)
[2018-10-28] MEDS ORDERED: BUPIVACAINE HCL/PF 0.5% (5MG/ML) 10 ML VIAL ONE (09:22)
[2018-10-28 09:38] LABS: ANION GAP 7 MMOL/L (8-16); BLOOD UREA NITROGEN 5 mg/dL (7-18); CALCIUM 8.3 mg/dL (8.5-10.1); CHLORIDE 107 mmol/L (98-107); CO2 23 mmol/L (21-32); CREATININE 0.7 mg/dL (0.55-1.3); GLUCOSE,RANDOM 105 mg/dL (74-106); MAGNESIUM 2.1 mg/dL (1.8-2.4); POTASSIUM 3.7 mmol/L (3.5-5.1); SODIUM 138 mmol/L (136-145)
[2018-10-28] MEDS ORDERED: fentaNYL CITRATE 250 MCG/5 ML VIAL ONE (11:05)
[2018-10-28] MEDS ORDERED: MIDAZOLAM HCL 2 MG/2 ML SINGLE DOSE VIAL ONE (11:05)
[2018-10-28] MEDS ORDERED: ROCURONIUM BROMIDE 50 MG/5 ML VIAL ONE (11:06)
[2018-10-28] MEDS ORDERED: PROPOFOL 20 ML ONE (11:06)
--- NOTE | 2018-10-28 11:54 | PN ---
Physical Exam: SUBJECTIVE: Patient seen and examined at bedside this morning. No acute events overnight. Patient still reports RUQ pain, that has been relieved by Morphine. She denies any fever, chills, nausea, vomiting, chest pain, SOB, palpitations, diarrhea, urinary symptoms. OBJECTIVE: Vital Signs Period Temp Pulse Resp BP Sys/Vital Pulse Ox Last 24 Hr 98.6 F-99.2 F 68-96 16-20 110-114/60-75 99-100 GENERAL: Awake, alert, and fully oriented, in no acute distress. HEAD: Normal with no signs of trauma. EYES: PERRLA, EOMI, sclera anicteric, conjunctiva clear. EARS, NOSE, THROAT: Ears normal, nares patent, oropharynx clear without exudates. Moist mucous membranes. NECK: Normal range of motion, supple without lymphadenopathy, JVD, or masses. LUNGS: Breath sounds equal, clear to auscultation bilaterally. HEART: Regular rate and rhythm, normal S1 and S2 without murmur, rub or gallop. ABDOMEN: Soft, +RUQ/epigastric tenderness, not distended, normoactive bowel sounds, no guarding, no masses. MUSCULOSKELETAL: Normal range of motion at all joints. No bony deformities or tenderness. No CVA tenderness. UPPER EXTREMITIES: 2+ pulses, warm, well-perfused. No cyanosis. No clubbing. No peripheral edema. LOWER EXTREMITIES: 2+ pulses, warm, well-perfused. No calf tenderness. No peripheral edema. NEUROLOGICAL: Cranial nerves II-XII intact. Normal speech. Normal gait. PSYCHIATRIC: Cooperative. Good eye contact. Appropriate mood and affect. SKIN: Warm, dry, normal turgor, no rashes or lesions noted. Laboratory Results - last 24 hr 10/27/18 10/27/18 10/27/18 11:15 11:15 11:15 WBC 14.8 H RBC 4.54 Hgb 13.7 Hct 40.1 MCV 88.3 MCH 30.1 MCHC 34.1 RDW 13.3 Plt Count 291 MPV 8.0 Absolute Neuts (auto) 13.6 H Neutrophils % 92.0 H D Neutrophils % (Manual) 87.9 H Band Neutrophils % 2.0 Lymphocytes % 4.1 L D Lymphocytes % (Manual) 7.1 L Monocytes % 3.7 L Monocytes % (Manual) 3 L Eosinophils % 0.0 D Eosinophils % (Manual) 0.0 Basophils % 0.2 Basophils % (Manual) 0.0 Myelocytes % (Man) 0 Promyelocytes % (Man) 0 Blast Cells % (Manual) 0 Nucleated RBC % 0 Metamyelocytes 0 Hypochromia 0 Platelet Estimate Normal Polychromasia 0 Poikilocytosis 0 Anisocytosis 0 Microcytosis 0 Macrocytosis 0 Sodium Potassium Chloride Carbon Dioxide Anion Gap BUN Creatinine Creat Clearance w eGFR Random Glucose Lactic Acid 1.0 Calcium Phosphorus Magnesium Lipase Blood Type B POSITIVE 10/27/18 10/28/18 10/28/18 11:15 08:20 08:20 WBC 13.8 H RBC 4.61 Hgb 13.2 Hct 40.9 MCV 88.8 MCH 28.7 MCHC 32.3 RDW 13.6 Plt Count 315 MPV 8.3 Absolute Neuts (auto) 9.7 H Neutrophils % 70.3 D Neutrophils % (Manual) Band Neutrophils % Lymphocytes % 19.1 D Lymphocytes % (Manual) Monocytes % 9.9 D Monocytes % (Manual) Eosinophils % 0.5 D Eosinophils % (Manual) Basophils % 0.2 Basophils % (Manual) Myelocytes % (Man) Promyelocytes % (Man) Blast Cells % (Manual) Nucleated RBC % 0 Metamyelocytes Hypochromia Platelet Estimate Polychromasia Poikilocytosis Anisocytosis Microcytosis Macrocytosis Sodium 138 Potassium 3.7 Chloride 107 Carbon Dioxide 23 Anion Gap 7 L BUN 5 L Creatinine 0.7 Creat Clearance w eGFR > 60 Random Glucose 105 Lactic Acid Calcium 8.3 L Phosphorus 3.0 Magnesium 2.1 Lipase 223 Blood Type Active Medications Generic Name Dose Route Start Last Admin Trade Name Freq PRN Reason Stop Dose Admin Lactated Ringer's 1,000 ml in 1,000 mls @ 100 mls/hr 10/27/18 11:00 10/27/18 18:17 Lactated Ringers Solution IV 100 mls/hr ASDIR GUSTAVO Administration Piperacillin Sod/Tazobactam 50 mls @ 100 mls/hr 10/27/18 18:00 10/28/18 09:10 Sod 3.375 gm/ Dextrose IVPB 100 mls/hr Q8H-IV GUSTAVO Administration Protocol Morphine Sulfate 2 mg 10/27/18 10:18 10/28/18 06:12 Morphine Sulfate IVPUSH 2 mg Q3H PRN Administration PAIN LEVEL 6-10 ASSESSMENT/PLAN: Patient is a 27 year old female with no significant past medical history presented with sudden onset cramping RUQ/epigastric pain that started last night. #Cholelithiasis, possible Acute cholecystitis: leukocytosis with left shift -POD 0: Lap cholecystectomy. Noted to have gangrenous cholecystitis. -Leukocytosis improvin.8 --> 13.8. Will continue to monitor. -IV LR @100ml/hr -Surgery (Dr. Chavez) consulted. Recommendations appreciated. -Clear liquid diet for dinner. -Tylenol, Fentanyl and Oxycodone PRN for pain. -ID (Dr. Weems) consulted. Recommendations appreciated. -Continue IV Zosyn 3.375 gm q8h #Lactic acidosis: resolved -likely from dehydration -IV fluids given -repeat lactic acid: 2.1 --> 1.0 #FEN -IV LR @ 100 -electrolytes wnl, routine bmp monitoring -Clear liquid diet. #Prophylaxis -TEDs, both legs -early ambulation #Disposition -full code -admit to med surg Visit type - Emergency Visit Emergency Visit: Yes ED Registration Date: 10/27/18 Care time: The patient presented to the Emergency Department on the above date and was hospitalized for further evaluation of their emergent condition. - New Patient This patient is new to me today: No - Critical Care Critical Care patient: No
[2018-10-28] MEDS ORDERED: DEXAMETHASONE SOD PHOSPHATE 4 MG/1 ML VIAL ONE (12:52)
[2018-10-28] MEDS ORDERED: KETOROLAC TROMETHAMINE 30 MG/1 ML VIAL ONE (12:52)
[2018-10-28] MEDS ORDERED: LIDOCAINE HCL/PF 2% SDV 5ML VIAL ONE (12:52)
[2018-10-28] MEDS ORDERED: LIDOCAINE 1% P/F 10 MG/ML VIAL PNB ONE (12:52)
[2018-10-28] MEDS ORDERED: ONDANSETRON 4 MG/2 ML VIAL IVPUSH PRN (13:17)
--- NOTE | 2018-10-28 13:31 | OP ---
Operative Note - Note: Operative Date: 10/28/18 Pre-Operative Diagnosis: acute cholecystitis/cholelithiasis Operation: laparoscopic cholecystectomy Findings: as above plus gangrenous cholecystitis Surgeon: Braeden Chavez Irrigation Engineer: Alee Mendes Anesthesiologist/WOOD MECHANIST: Sheeba Ramirez MD Anesthesia: General Specimens Removed: gallbladder and contents Estimated Blood Loss (mls): 25 Drains & Tubes with Location: 10 mm ROBERT in gallbladder fossa Fluid Volume Replaced (mls): 1,100
--- NOTE | 2018-10-28 13:35 | SURG ---
Surgery Professor Of Historical Theology Note Professor Of Historical Theology: Alee Mendes PA-C Date of Service: 10/28/18 Diagnosis: acute cholecystitis/cholelithiasis Procedure: laparoscopic cholecystectomy I was present for the entirety of the operative procedure. For further detail, please refer to operative report. Visit type - Case Type Case Type: ED Admission - Emergency Emergency Visit: Yes ED Registration Date: 10/27/18 Care time: The patient presented to the Emergency Department on the above date and was hospitalized for further evaluation of their emergent condition. - New patient This patient is new to me today: Yes Date on this admission: 10/28/18
[2018-10-28] MEDS: LACTATED RINGERS SOLUTION 1,000 ML IV SCH ×2 (14:30→22:08)
--- NOTE | 2018-10-28 15:33 | PN ---
Teaching Attending Note Name of Resident: Tanya Marcus ATTENDING PHYSICIAN STATEMENT I saw and evaluated the patient. I reviewed the resident's note and discussed the case with the resident. I agree with the resident's findings and plan as documented. SUBJECTIVE: Patient is a 27yo female presented with Acute RUQ pain. Patient stated that she had a Pizza before the attack. Patient is s/p Lap.chol.feeling better. OBJECTIVE: Vital Signs Temperature 98.5 F 10/28/18 15:23 Pulse Rate 78 10/28/18 15:23 Respiratory Rate 18 10/28/18 15:23 Blood Pressure 101/68 10/28/18 15:23 O2 Sat by Pulse Oximetry (%) 100 10/28/18 15:23 GENERAL: Awake, alert, and fully oriented, in no acute distress. HEAD: Normal with no signs of trauma. EYES: PERRLA, EOMI, sclera anicteric, conjunctiva clear. EARS, NOSE, THROAT: Ears normal, oropharynx clear without exudates. MMM . NECK: Normal range of motion, supple without lymphadenopathy, JVD, or masses. LUNGS: Breath sounds equal, clear to auscultation bilaterally. HEART: Regular rate and rhythm, normal S1 and S2 without murmur, rub or gallop. ABDOMEN: Soft, s/p lap. chol. , ND, normoactive bowel sounds, no guarding, no masses. EXTREMITIES: 2+ pulses, warm, well-perfused. No cyanosis. No clubbing. No peripheral edema. NEUROLOGICAL: Cranial nerves II-XII intact. Normal speech. Normal gait. PSYCHIATRIC: Cooperative. Good eye contact. Appropriate mood and affect. SKIN: Warm, dry, normal turgor, no rashes or lesions noted. CBCD WBC 13.8 K/mm3 (4.0-10.0) H 10/28/18 08:20 RBC 4.61 M/mm3 (3.60-5.2) 10/28/18 08:20 Hgb 13.2 GM/dL (10.7-15.3) 10/28/18 08:20 Hct 40.9 % (32.4-45.2) 10/28/18 08:20 MCV 88.8 fl (80-96) 10/28/18 08:20 MCHC 32.3 g/dl (32.0-36.0) 10/28/18 08:20 RDW 13.6 % (11.6-15.6) 10/28/18 08:20 Plt Count 315 K/MM3 (134-434) 10/28/18 08:20 MPV 8.3 fl (7.5-11.1) 10/28/18 08:20 CMP Sodium 138 mmol/L (136-145) 10/28/18 08:20 Potassium 3.7 mmol/L (3.5-5.1) 10/28/18 08:20 Chloride 107 mmol/L (98-107) 10/28/18 08:20 Carbon Dioxide 23 mmol/L (21-32) 10/28/18 08:20 Anion Gap 7 MMOL/L (8-16) L 10/28/18 08:20 BUN 5 mg/dL (7-18) L 10/28/18 08:20 Creatinine 0.7 mg/dL (0.55-1.3) 10/28/18 08:20 Creat Clearance w eGFR > 60 (>60) 10/28/18 08:20 Random Glucose 105 mg/dL (74-106) 10/28/18 08:20 Calcium 8.3 mg/dL (8.5-10.1) L 10/28/18 08:20 Total Bilirubin 0.6 mg/dL (0.2-1) 10/27/18 05:00 AST 20 U/L (15-37) 10/27/18 05:00 ALT 23 U/L (13-61) 10/27/18 05:00 Alkaline Phosphatase 114 U/L (45-117) 10/27/18 05:00 Total Protein 7.8 g/dl (6.4-8.2) 10/27/18 05:00 Albumin 3.8 g/dl (3.4-5.0) 10/27/18 05:00 CARDIAC ENZYMES Creatine Kinase 136 IU/L (26-192) 10/27/18 05:00 Troponin I < 0.02 ng/ml (0.00-0.05) 10/27/18 05:00 Current Medications Generic Name Dose Route Start Last Admin Trade Name Freq PRN Reason Stop Dose Admin Acetaminophen 650 mg 10/28/18 13:29 Tylenol - PO Q4H PRN FEVER Fentanyl 50 mcg 10/28/18 13:17 Sublimaze Injection - IVPUSH 10/29/18 03:00 [id number] PRN PAIN-PACU ORDER X 4 DOSES ONLY Piperacillin Sod/Tazobactam 50 mls @ 100 mls/hr 10/27/18 18:00 10/28/18 09:10 Sod 3.375 gm/ Dextrose IVPB 100 mls/hr Q8H-IV GUSTAVO Administration Protocol Lactated Ringer's 1,000 mls @ 125 mls/hr 10/28/18 14:30 10/28/18 14:30 Lactated Ringers Solution IV 125 mls/hr ASDIR GUSTAVO Administration Ondansetron HCl 4 mg 10/28/18 13:17 Zofran Injection IVPUSH 10/29/18 03:00 Q6H PRN NAUSEA AND/OR VOMITING Oxycodone HCl 5 mg 10/28/18 13:25 Roxicodone - PO Q4H PRN PAIN LEVEL 1-5 Oxycodone HCl 10 mg 10/28/18 13:25 Roxicodone - PO Q4H PRN PAIN LEVEL 6-10 Initial Vital Signs Temp Pulse Resp BP Pulse Ox 97.4 F L 84 22 H 138/80 100 10/27/18 04:25 10/27/18 04:25 10/27/18 04:25 10/27/18 04:25 10/27/18 04:25 ASSESSMENT AND PLAN: Patient is a 27 year old female with no significant past medical history presented RUQ/epigastric pain that started last night. # POD #1 s/p Lap.chol. was found to have gangrenous cholecystitis on IV antiobitics Zosyn continue ,ID on the case. #Lactic acidosis: resolved repeat lactic acid: 2.1 --> 1.0, post IVF DVT Px: TEDs, both legs, early ambulation
[2018-10-28] MEDS: oxyCODONE HCL 5 MG TABLET PO PRN (16:49)
[2018-10-28] MEDS: ACETAMINOPHEN 325 MG TABLET (FP) PO PRN (16:49)
[2018-10-29] MEDS ORDERED: PIPERACILLIN/TAZOBACTAM 3.375 GM VIAL IVPB ONE ×3 (01:10→18:09)
[2018-10-29] MEDS ORDERED: DEXTROSE 5%-WATER - 50 ML IVPB ONE ×3 (01:10→18:09)
[2018-10-29] MEDS: PIPERACILLIN/TAZOB 3.375 GM 3.375 GM in DEXTROSE 5%-WATER - 50 ML IVPB SCH ×3 (01:19→18:21)
[2018-10-29] MEDS: oxyCODONE HCL 5 MG TABLET PO PRN ×4 (01:24→10:53)
[2018-10-29] MEDS: ACETAMINOPHEN 325 MG TABLET (FP) PO PRN ×2 (01:25→10:43)
[2018-10-29 07:41] LABS: BASO % 0.2 % (0-2.0); EOS % 0.8 % (0-4.5); HEMATOCRIT 35.7 % (32.4-45.2); HEMOGLOBIN 11.6 GM/dL (10.7-15.3); LYMPH % 24.7 % (8-40); MCH 29.2 pg (25.7-33.7); MCHC 32.6 g/dl (32.0-36.0); MEAN CELL VOLUME 89.5 fl (80-96); MEAN PLT VOLUME 8.4 fl (7.5-11.1); MONO % 10.8 % (3.8-10.2); NEUT % 63.5 % (42.8-82.8); PLATELET COUNT 242 K/MM3 (134-434); RBC 3.98 M/mm3 (3.60-5.2); RDW 13.5 % (11.6-15.6)
[2018-10-29 08:12] LABS: ALBUMIN 2.7 g/dl (3.4-5.0); ALK PHOS 71 U/L (45-117); ANION GAP 6 MMOL/L (8-16); BILIRUBIN,TOTAL 1.3 mg/dL (0.2-1); BLOOD UREA NITROGEN 4 mg/dL (7-18); CALCIUM 8.1 mg/dL (8.5-10.1); CHLORIDE 106 mmol/L (98-107); CO2 27 mmol/L (21-32); CREATININE 0.5 mg/dL (0.55-1.3); GLUCOSE,RANDOM 80 mg/dL (74-106); POTASSIUM 3.7 mmol/L (3.5-5.1); SGOT/AST 35 U/L (15-37); SGPT/ALT 43 U/L (13-61); SODIUM 140 mmol/L (136-145); TOT PROT 5.5 g/dl (6.4-8.2)
--- NOTE | 2018-10-29 08:44 | PN ---
Progress Note (short form) - Note Progress Note: ANESTHESIOLOGY POST-OP CHECK 27F s/p lap cholecystectomy under general anesthesia, POD #1. No acute complaints. Denies N/V. Pain 7/10 and tolerable. Vital Signs Temperature 98.9 F 10/29/18 06:00 Pulse Rate 80 10/29/18 06:00 Respiratory Rate 20 10/29/18 06:00 Blood Pressure 94/51 L 10/29/18 06:00 O2 Sat by Pulse Oximetry (%) 96 10/28/18 21:00 Active Medications Acetaminophen (Tylenol -) 650 mg PO Q4H PRN PRN Reason: FEVER Last Admin: 10/29/18 01:25 Dose: 650 mg Piperacillin Sod/Tazobactam (Sod 3.375 gm/ Dextrose) 50 mls @ 100 mls/hr IVPB Q8H-IV GUSTAVO; Protocol Last Admin: 10/29/18 01:19 Dose: 100 mls/hr Lactated Ringer's (Lactated Ringers Solution) 1,000 mls @ 125 mls/hr IV ASDIR GUSTAVO Last Admin: 10/28/18 22:08 Dose: 125 mls/hr Oxycodone HCl (Roxicodone -) 5 mg PO Q4H PRN PRN Reason: PAIN LEVEL 1-5 Last Admin: 10/29/18 01:24 Dose: 5 mg Oxycodone HCl (Roxicodone -) 10 mg PO Q4H PRN PRN Reason: PAIN LEVEL 6-10 Last Admin: 10/29/18 01:30 Dose: 10 mg Gen: awake, alert, NAD No apparent anesthesia complications. Pain controlled. Continue management as per primary team.
[2018-10-29] MEDS ORDERED: RANITIDINE HCL 150 MG TABLET (FP) PO SCH (10:30)
--- NOTE | 2018-10-29 12:23 | PN ---
Physical Exam: SUBJECTIVE: Patient seen and examined. No acute events overnight. Has not yet passed gas or had BM. Says she has mild RUQ tenderness, but better than yesterday. OBJECTIVE: Vital Signs Period Temp Pulse Resp BP Sys/Vital Pulse Ox Last 24 Hr 96.6 F-99.2 F 60-82 16-20 94-134/51-74 96-100 GENERAL: The patient is awake, alert, and fully oriented, in no acute distress. HEAD: Normal with no signs of trauma. EYES: PERRL, extraocular movements intact, sclera anicteric, conjunctiva clear. No ptosis. ENT: oropharynx clear without exudates, moist mucous membranes. NECK: supple. LUNGS: Breath sounds equal, clear to auscultation bilaterally HEART: Regular rate and rhythm, S1, S2 without murmur, rub or gallop. ABDOMEN: Soft, mild ttp RUQ. drain in place. 75cc sanginous fluid. EXTREMITIES: 2+ pulses, warm, well-perfused, no edema. NEUROLOGICAL: Cranial nerves II through XII grossly intact. Normal speech, gait not observed. Laboratory Results - last 24 hr 10/29/18 10/29/18 06:00 06:00 WBC 11.0 H RBC 3.98 Hgb 11.6 Hct 35.7 MCV 89.5 MCH 29.2 MCHC 32.6 RDW 13.5 Plt Count 242 D MPV 8.4 Absolute Neuts (auto) 7.0 Neutrophils % 63.5 Lymphocytes % 24.7 D Monocytes % 10.8 H Eosinophils % 0.8 Basophils % 0.2 Nucleated RBC % 0 Sodium 140 Potassium 3.7 Chloride 106 Carbon Dioxide 27 Anion Gap 6 L BUN 4 L Creatinine 0.5 L Creat Clearance w eGFR > 60 Random Glucose 80 Calcium 8.1 L Total Bilirubin 1.3 H AST 35 ALT 43 Alkaline Phosphatase 71 Total Protein 5.5 L Albumin 2.7 L Active Medications Generic Name Dose Route Start Last Admin Trade Name Freq PRN Reason Stop Dose Admin Acetaminophen 650 mg 10/28/18 13:29 10/29/18 10:43 Tylenol - PO 650 mg Q4H PRN Administration FEVER Piperacillin Sod/Tazobactam 50 mls @ 100 mls/hr 10/27/18 18:00 10/29/18 10:11 Sod 3.375 gm/ Dextrose IVPB 100 mls/hr Q8H-IV GUSTAVO Administration Protocol Lactated Ringer's 1,000 mls @ 125 mls/hr 10/28/18 14:30 10/28/18 22:08 Lactated Ringers Solution IV 125 mls/hr ASDIR GUSTAVO Administration Oxycodone HCl 5 mg 10/28/18 13:25 10/29/18 01:24 Roxicodone - PO 5 mg Q4H PRN Administration PAIN LEVEL 1-5 Oxycodone HCl 10 mg 10/28/18 13:25 10/29/18 10:53 Roxicodone - PO 10 mg Q4H PRN Administration PAIN LEVEL 6-10 Ranitidine HCl 150 mg 10/29/18 10:30 10/29/18 10:41 Zantac - PO 150 mg BID GUSTAVO Administration ASSESSMENT/PLAN: Patient is a 27 year old female with no significant past medical history presented with sudden onset cramping RUQ/epigastric pain that started last night. #Gangrenous Cholecystitis -POD 1: Lap cholecystectomy. Noted to have gangrenous cholecystitis. -Leukocytosis improvin.8 --> 13.8- -> 11 -IV LR @125ml/hr -Surgery (Dr. Chavez) consulted. Recommendations appreciated. -Clear liquid diet for dinner. -Tylenol, Fentanyl and Oxycodone PRN for pain. -ID (Dr. Weems) consulted. Recommendations appreciated. -Continue IV Zosyn 3.375 gm q8h #Lactic acidosis: resolved -likely from dehydration -IV fluids given -repeat lactic acid: 2.1 --> 1.0 #FEN -IV LR @ 125 -electrolytes wnl, routine bmp monitoring -Clear liquid diet. #Prophylaxis -TEDs, both legs -early ambulation #Disposition -med-surge Visit type - Emergency Visit Emergency Visit: Yes ED Registration Date: 10/27/18 Care time: The patient presented to the Emergency Department on the above date and was hospitalized for further evaluation of their emergent condition. - New Patient This patient is new to me today: Yes Date on this admission: 10/29/18 - Critical Care Critical Care patient: No
--- NOTE | 2018-10-29 12:57 | PN ---
Progress Note (short form) - Note Progress Note: Attending Surgeon POD #1 Minimal c/o pain; tolerating diet VSS AF abdo-soft; port site dressings c/d/i; ROBERT serous; output noted LFT's normal; bili 1.3 WBC down from pre-op IMP: stable post op PLAN: Continue present tx. OOB/IVF/IVABS and drain. Braeden hCavez MD FACS
[2018-10-29] MEDS: LACTATED RINGERS SOLUTION 1,000 ML IV SCH (17:03)
--- NOTE | 2018-10-29 17:57 | PN ---
Teaching Attending Note Name of Resident: Sarah Nicole ATTENDING PHYSICIAN STATEMENT I saw and evaluated the patient. I reviewed the resident's note and discussed the case with the resident. I agree with the resident's findings and plan as documented. SUBJECTIVE: Patient continues to c/o having an abdominal pain. No fever or chills, no shortness of breath. OBJECTIVE: Vital Signs Temperature 98.6 F 10/29/18 14:34 Pulse Rate 82 10/29/18 14:34 Respiratory Rate 18 10/29/18 14:34 Blood Pressure 98/59 L 10/29/18 14:34 O2 Sat by Pulse Oximetry (%) 99 10/29/18 09:00 GENERAL: Awake, alert, and fully oriented, in no acute distress. HEAD: Normal with no signs of trauma. EYES: PERRLA, EOMI, sclera anicteric, conjunctiva clear. EARS, NOSE, THROAT: Ears normal, oropharynx clear without exudates. Moist mucous membranes. NECK: Normal range of motion, supple without lymphadenopathy, JVD, or masses. LUNGS: Breath sounds equal, clear to auscultation bilaterally. HEART: Regular rate and rhythm, normal S1 and S2 without murmur, rub or gallop. ABDOMEN: Soft, s/p lap. chol., ND, normoactive bowel sounds, no guarding, no masses. EXTREMITIES: 2+ pulses, warm, well-perfused. No cyanosis. No clubbing. No peripheral edema. NEUROLOGICAL: Cranial nerves II-XII intact. Normal speech. Normal gait. PSYCHIATRIC: Cooperative. Good eye contact. Appropriate mood and affect. SKIN: Warm, dry, normal turgor, no rashes or lesions noted. CBCD WBC 11.0 K/mm3 (4.0-10.0) H 10/29/18 06:00 RBC 3.98 M/mm3 (3.60-5.2) 10/29/18 06:00 Hgb 11.6 GM/dL (10.7-15.3) 10/29/18 06:00 Hct 35.7 % (32.4-45.2) 10/29/18 06:00 MCV 89.5 fl (80-96) 10/29/18 06:00 MCHC 32.6 g/dl (32.0-36.0) 10/29/18 06:00 RDW 13.5 % (11.6-15.6) 10/29/18 06:00 Plt Count 242 K/MM3 (134-434) D 10/29/18 06:00 MPV 8.4 fl (7.5-11.1) 10/29/18 06:00 CMP Sodium 140 mmol/L (136-145) 10/29/18 06:00 Potassium 3.7 mmol/L (3.5-5.1) 10/29/18 06:00 Chloride 106 mmol/L (98-107) 10/29/18 06:00 Carbon Dioxide 27 mmol/L (21-32) 10/29/18 06:00 Anion Gap 6 MMOL/L (8-16) L 10/29/18 06:00 BUN 4 mg/dL (7-18) L 10/29/18 06:00 Creatinine 0.5 mg/dL (0.55-1.3) L 10/29/18 06:00 Creat Clearance w eGFR > 60 (>60) 10/29/18 06:00 Random Glucose 80 mg/dL (74-106) 10/29/18 06:00 Calcium 8.1 mg/dL (8.5-10.1) L 10/29/18 06:00 Total Bilirubin 1.3 mg/dL (0.2-1) H 10/29/18 06:00 AST 35 U/L (15-37) 10/29/18 06:00 ALT 43 U/L (13-61) 10/29/18 06:00 Alkaline Phosphatase 71 U/L (45-117) 10/29/18 06:00 Total Protein 5.5 g/dl (6.4-8.2) L 10/29/18 06:00 Albumin 2.7 g/dl (3.4-5.0) L 10/29/18 06:00 CARDIAC ENZYMES Creatine Kinase 136 IU/L (26-192) 10/27/18 05:00 Troponin I < 0.02 ng/ml (0.00-0.05) 10/27/18 05:00 Current Medications Generic Name Dose Route Start Last Admin Trade Name Freq PRN Reason Stop Dose Admin Acetaminophen 650 mg 10/28/18 13:29 10/29/18 10:43 Tylenol - PO 650 mg Q4H PRN Administration FEVER Piperacillin Sod/Tazobactam 50 mls @ 100 mls/hr 10/27/18 18:00 10/29/18 10:11 Sod 3.375 gm/ Dextrose IVPB 100 mls/hr Q8H-IV GUSTAVO Administration Protocol Lactated Ringer's 1,000 mls @ 125 mls/hr 10/28/18 14:30 10/29/18 17:03 Lactated Ringers Solution IV 125 mls/hr ASDIR GUSTAVO Administration Oxycodone HCl 5 mg 10/28/18 13:25 10/29/18 01:24 Roxicodone - PO 5 mg Q4H PRN Administration PAIN LEVEL 1-5 Oxycodone HCl 10 mg 10/28/18 13:25 10/29/18 10:53 Roxicodone - PO 10 mg Q4H PRN Administration PAIN LEVEL 6-10 Home Medications Medication Instructions Recorded Ibuprofen [Motrin -] 600 mg PO TID PRN #12 tablet 10/28/18 ASSESSMENT AND PLAN: Patient is a 27 year old female with no significant past medical history presented RUQ/epigastric pain that started last night. # POD #2 s/p Lap.chol. was found to have gangrenous cholecystitis on IV antiobitics Zosyn continue ,ID on the case. is the surgeon. monitor wbc is slightly elevated. discharge planning. Pain control. #Lactic acidosis: resolved repeat lactic acid: 2.1 --> 1.0, post IVF DVT Px: TEDs, both legs, early ambulation
[2018-10-30] MEDS ORDERED: DEXTROSE 5%-WATER - 50 ML IVPB ONE ×2 (00:55→09:22)
[2018-10-30] MEDS ORDERED: PIPERACILLIN/TAZOBACTAM 3.375 GM VIAL IVPB ONE ×2 (00:55→09:22)
[2018-10-30] MEDS: PIPERACILLIN/TAZOB 3.375 GM 3.375 GM in DEXTROSE 5%-WATER - 50 ML IVPB SCH ×2 (01:58→09:28)
[2018-10-30] MEDS: oxyCODONE HCL 5 MG TABLET PO PRN ×2 (03:12→09:27)
[2018-10-30] MEDS: ACETAMINOPHEN 325 MG TABLET (FP) PO PRN ×2 (03:15→09:26)
[2018-10-30] MEDS: LACTATED RINGERS SOLUTION 1,000 ML IV SCH (03:16)
[2018-10-30 07:30] LABS: BASO % 0.4 % (0-2.0); EOS % 2.1 % (0-4.5); LYMPH % 30.6 % (8-40); MCH 28.8 pg (25.7-33.7); MCHC 32.2 g/dl (32.0-36.0); MEAN CELL VOLUME 89.5 fl (80-96); MEAN PLT VOLUME 8.4 fl (7.5-11.1); MONO % 9.3 % (3.8-10.2); NEUT % 57.6 % (42.8-82.8); PLATELET COUNT 218 K/MM3 (134-434); RDW 13.1 % (11.6-15.6); WHITE BLOOD COUNT 7.7 K/mm3 (4.0-10.0)
[2018-10-30 08:36] LABS: ALBUMIN 2.4 g/dl (3.4-5.0); ALK PHOS 124 U/L (45-117); ANION GAP 7 MMOL/L (8-16); BILIRUBIN,TOTAL 0.8 mg/dL (0.2-1); BLOOD UREA NITROGEN 3 mg/dL (7-18); CALCIUM 7.8 mg/dL (8.5-10.1); CHLORIDE 107 mmol/L (98-107); CO2 26 mmol/L (21-32); CREATININE 0.5 mg/dL (0.55-1.3); GLUCOSE,RANDOM 80 mg/dL (74-106); POTASSIUM 3.5 mmol/L (3.5-5.1); SGOT/AST 76 U/L (15-37); SGPT/ALT 122 U/L (13-61); SODIUM 140 mmol/L (136-145); TOT PROT 5.1 g/dl (6.4-8.2)
--- NOTE | 2018-10-30 08:57 | PN ---
Progress Note (short form) - Note Progress Note: POD#2 Pt without complaints of nausea or emesis, tolerating clears. Vital Signs Period Temp Pulse Resp BP Sys/Vital Pulse Ox Last 24 Hr 98.6 F-99 F 68-88 18-20 98-112/56-73 99-99 JP_serosangrenous 140ml GEN: A&0x3, NAD ABD: soft, non-distended, inc tenderness. Inc c/d/i. ROBERT removed today, intact and without difficulty. Clean/dry dressing applied. LE: No calf tenderness or swelling b/l. A/p: 27 yo female s/p lap [place] Doing well surgically Robert removed and her diet advanced Spoke with the medical team and plan for discharge today Pt seen and examined today with Dr. Chavez
[2018-10-30 09:31] VITALS: BP 100/59; PULSE 75; TEMP 98.4
--- NOTE | 2018-10-30 11:11 | PN ---
Teaching Attending Note Name of Resident: Tanya Marcus ATTENDING PHYSICIAN STATEMENT I saw and evaluated the patient. I reviewed the resident's note and discussed the case with the resident. I agree with the resident's findings and plan as documented. SUBJECTIVE: No complaints. OBJECTIVE: Vital Signs Period Temp Pulse Resp BP Sys/Vital Pulse Ox Last 24 Hr 98.4 F-99 F 68-88 18-20 98-112/56-73 99 HEART: S1S2, RRR LUNGS: Clear ABDOMEN: Obese, soft, non-tender, non-distended, normal BS EXTREMITIES: No edema Laboratory Results - last 24 hr 10/30/18 10/30/18 06:00 06:00 WBC 7.7 RBC 3.80 Hgb 11.0 Hct 34.0 MCV 89.5 MCH 28.8 MCHC 32.2 RDW 13.1 Plt Count 218 MPV 8.4 Absolute Neuts (auto) 4.4 Neutrophils % 57.6 Lymphocytes % 30.6 D Monocytes % 9.3 Eosinophils % 2.1 D Basophils % 0.4 Nucleated RBC % 0 Sodium 140 Potassium 3.5 Chloride 107 Carbon Dioxide 26 Anion Gap 7 L BUN 3 L Creatinine 0.5 L Creat Clearance w eGFR > 60 Random Glucose 80 Calcium 7.8 L Total Bilirubin 0.8 AST 76 H ALT 122 H Alkaline Phosphatase 124 H Total Protein 5.1 L Albumin 2.4 L Current Medications Generic Name Dose Route Start Last Admin Trade Name Freq PRN Reason Stop Dose Admin Acetaminophen 650 mg 10/28/18 13:29 10/30/18 09:26 Tylenol - PO 650 mg Q4H PRN Administration FEVER Piperacillin Sod/Tazobactam 50 mls @ 100 mls/hr 10/27/18 18:00 10/30/18 09:28 Sod 3.375 gm/ Dextrose IVPB 100 mls/hr Q8H-IV GUSTAVO Administration Protocol Lactated Ringer's 1,000 mls @ 125 mls/hr 10/28/18 14:30 10/30/18 03:16 Lactated Ringers Solution IV 125 mls/hr ASDIR GUSTAVO Administration Oxycodone HCl 5 mg 10/28/18 13:25 10/29/18 01:24 Roxicodone - PO 5 mg Q4H PRN Administration PAIN LEVEL 1-5 Oxycodone HCl 10 mg 10/28/18 13:25 10/30/18 09:27 Roxicodone - PO 10 mg Q4H PRN Administration PAIN LEVEL 6-10 ASSESSMENT AND PLAN: This is a 27 year old woman with no significant past medical history who presented to the ED with RUQ/epigastric pain. 1. Gangrenous cholecystitis - s/p lap cholecystectomy 10/28 - On Zosyn - change to Augmentin at discharge - ROBERT jennifer removed - Tolerating diet - Transaminases elevated today - ? Zosyn 2. Lactic acidosis - Resolved 3. Obesity with BMI 31.3 4. Disposition - Ok for discharge home on Augmentin today - Follow up with surgery in 1 week - Check LFTs in 2-3 days - Follow up with PCP in 1 week
--- NOTE | 2018-10-30 12:26 | DS ---
Physical Exam: SUBJECTIVE: Patient seen and examined at bedside this morning. Patient able to tolerate clear liquid diet. Patient reports she is still unable to pass gas and has no bowel movements, but has burped multiple times and is able to urinate without any problems. Drainage output about 40ml overnight. Denies any fever, chills, nausea, vomiting, headache, dizziness, chest pain, SOB, palpitations. OBJECTIVE: Vital Signs Period Temp Pulse Resp BP Sys/Vital Pulse Ox Last 24 Hr 98.4 F-99 F 68-88 18-20 98-112/56-73 96-99 PHYSICAL EXAM GENERAL: Awake, alert, and fully oriented, in no acute distress. HEAD: Normal with no signs of trauma. EYES: PERRLA, EOMI, sclera anicteric, conjunctiva clear. EARS, NOSE, THROAT: Ears normal, nares patent, oropharynx clear without exudates. Moist mucous membranes. NECK: Normal range of motion, supple without lymphadenopathy, JVD, or masses. LUNGS: Breath sounds equal, clear to auscultation bilaterally. HEART: Regular rate and rhythm, normal S1 and S2 without murmur, rub or gallop. ABDOMEN: Soft, not distended, normoactive bowel sounds, +bandages on the RUQ, + ROBERT drain with minimal clear yellowish fluid MUSCULOSKELETAL: Normal range of motion at all joints. No bony deformities or tenderness. No CVA tenderness. UPPER EXTREMITIES: 2+ pulses, warm, well-perfused. No cyanosis. No clubbing. No peripheral edema. LOWER EXTREMITIES: 2+ pulses, warm, well-perfused. No calf tenderness. No peripheral edema. NEUROLOGICAL: Cranial nerves II-XII intact. Normal speech. Normal gait. PSYCHIATRIC: Cooperative. Good eye contact. Appropriate mood and affect. SKIN: Warm, dry, normal turgor, no rashes or lesions noted. LABS Laboratory Results - last 24 hr 10/30/18 10/30/18 06:00 06:00 WBC 7.7 RBC 3.80 Hgb 11.0 Hct 34.0 MCV 89.5 MCH 28.8 MCHC 32.2 RDW 13.1 Plt Count 218 MPV 8.4 Absolute Neuts (auto) 4.4 Neutrophils % 57.6 Lymphocytes % 30.6 D Monocytes % 9.3 Eosinophils % 2.1 D Basophils % 0.4 Nucleated RBC % 0 Sodium 140 Potassium 3.5 Chloride 107 Carbon Dioxide 26 Anion Gap 7 L BUN 3 L Creatinine 0.5 L Creat Clearance w eGFR > 60 Random Glucose 80 Calcium 7.8 L Total Bilirubin 0.8 AST 76 H ALT 122 H Alkaline Phosphatase 124 H Total Protein 5.1 L Albumin 2.4 L RUQ US: Cholelithiasis. Gallbladder sludge and debris HOSPITAL COURSE: Date of Admission:10/27/18 Date of Discharge: 10/30/18 Patient is a 27 year old female with no significant past medical history presented with sudden onset cramping RUQ/epigastric pain for 1 day. RUQ ultrasound done showed cholelithiasis and GB sludge and debris. Surgery was consulted and scheduled patient for lap cholecystectomy the next day. Patient also was noted to have leukocytosis. ID consulted and patient was started on IV Zosyn. Post-operative findings showed patient had gangrenous cholecystitis. Antibiotics were continued, pain managed and patient was started on clear liquid diet for which she was able to tolerate. Patient continued to improved throughout her hospital stay. She was discharged with instructions to follow-up with Dr. Chavez and to take Augmentin for 7 days. Minutes to complete discharge: 40 Discharge Summary Reason For Visit: SYMPTOMATIC CHOLELITHIASIS Condition: Stable - Instructions Diet, Activity, Other Instructions: Dr. Chavez Discharge Instructions Dear WENDI BEDOYA, Post Operative Instructions Physical activity Resume your normal everyday activity as tolerated no heavy lifting or exercise until seen by your surgeon. You may walk unlimited amounts of and climb stairs. You may resume driving the car when you feel safe and comfortable behind the wheel. Wound care If you have a bandage, leave it on, and keep dry for 72 hours. After that time discard the outer bandage. If there are tapes on the skin under the outer bandage, leave them in place. They will peel off in the next 7 to 10 days. Do Not peel them off. You may shower 3 days after surgery but do not submerge the incisions. If there are tapes present on the skin, they can get wet. Do not apply any lotion, creams or ointments to incisions. Diet There are no dietary restrictions. Eat healthy, high-fiber foods. Drink 6 to 8 glasses of liquid each day. This will assist in keeping your bowels are regular. Pain management You may take Tylenol or acetaminophen or Ibuprofen (for example, Motrin, Advil etc.) Any pain prescription medication ordered should be taken as prescribed for moderate to severe pain. Call Dr. Chavez for any of the following: Severe pain not relieved by medication Fever of 101 or higher Excessive bleeding or drainage on dressing Inability to urinate If you experience any chest pain or shortness of breath please seek emergency treatment immediately. Call the office at [phone] for a post operative appointment in 7 - 10 days. You need to follow up with your primary care doctor to have your blood work done CBC, CMP (for white cells and liver function tests) in 3 days Continue taking antibiotic by mouth (augmentin 875mg every 12 hours) for the next 7 days Referrals: Braeden Chavez MD [Staff Physician] - 1 Week Alla Sanford MD [Primary Care Provider] - 1 Week Disposition: HOME - Home Medications Comprehensive Discharge Medication List: Ambulatory Orders Ibuprofen [Motrin -] 600 mg PO TID PRN #12 tablet 10/28/18 Amox-Tr/K Cl [Augmentin - 875Mg Tablet] 1 tab PO BID 7 Days #14 tablet 10/30/18 Miscellaneous Medical Supply [Outpatient Order] 1 each ASDIR #1 misc This patient is new to me today: No Emergency Visit: Yes ED Registration Date: 10/27/18 Care time: The patient presented to the Emergency Department on the above date and was hospitalized for further evaluation of their emergent condition. Critical Care patient: No - Discharge Referral Referred to [facility] Med P.C.: No
--- NOTE | 2018-10-30 16:30 | OP ---
DATE OF OPERATION: 10/28/2018 PREOPERATIVE DIAGNOSIS: Acute cholecystitis and cholelithiasis. POSTOPERATIVE DIAGNOSIS: Acute cholecystitis and cholelithiasis with gangrenous cholecystitis. PROCEDURE: Laparoscopic cholecystectomy. SURGEON: Braeden Chavez MD VARNISH THINNER: Alee Mendes PA-C ANESTHESIA: General. OPERATIVE FINDINGS: A gangrenous gallbladder containing multiple stones too numerous to count. The rest of the findings were unremarkable. PROCEDURE: The patient was placed on the operating table in the supine position and after the induction of general anesthesia the patient's abdomen was prepped with ChloraPrep and draped in sterile fashion. A timeout was taken and pneumoperitoneum established above the umbilicus using a Veress needle. Once 15 mmHg of pressure were obtained, a 5-mm port was placed at the umbilicus and additional lateral 5-mm ports and a subxiphoid 12-mm port. Laparoscopy was carried out and the previously noted findings were observed. Dissection was begun at the neck of the gallbladder where the peritoneum was opened medially and laterally using blunt dissection and electrocautery. The cystic duct was identified coursing from the neck of the gallbladder towards the common bile duct and it was dissected using blunt dissection proximally and distally for length. Similarly, the artery was identified and dissected proximally and distally for length. A critical view of safety was taken and then the duct and the artery were clipped twice proximally and twice distally with large hemoclips. The duct and artery were then serially divided using Endoshears. Hemostasis was checked for and noted to be good and then the gallbladder was removed from the liver bed in a retrograde fashion using electrocautery. Prior to removal from the edge of the liver, hemostasis in the liver bed was again checked for and noted to be good and then the gallbladder removed from the edge of the liver, placed in an EndoCatch , and brought out through the subxiphoid port. Pneumoperitoneum was reestablished. Copious irrigation was carried out with saline. Hemostasis was verified again. A 10-mm Behzad-Duran drain was placed in the right hepatorenal fossa and brought out through 1 of the 5-mm ports and secured to the skin with 2-0 silk suture. All port sites were removed under laparoscopic vision without evidence of bleeding from the port sites. The port sites were infiltrated with 0.5% Marcaine and the skin edges reapproximated with 4-0 Biosyn in a subcuticular continuous fashion. Steri-Strips and Band-Aid dressings were placed. The drain was connected to bulb suction and then the patient aroused from general anesthesia and transferred to the postanesthesia care unit in stable condition, awake and alert. ESTIMATED BLOOD LOSS: 25 mL. REPLACEMENT: Crystalloid. DRAINS: One 10-mm Behzad-Duran in the gallbladder fossa. SPECIMEN: Gallbladder and contents to Pathology. I, Braeden Chavez, was physically present in the operating room from the time the patient was placed on the operating table until she was transferred to the postanesthesia care unit in [place]. MD BRADEN Bolden/[id number] MTDD
--- NOTE | 2018-10-31 18:30 | PATH ---
Surgical Pathology Report Patient Name: WENDI BEDOYA Med. Rec. #: [id number] /Age/Gender: 1990 (Age: 27) / F Account: [id number] Location: [facility] MED/SURG Taken: 10/28/2018 Received: 10/28/2018 Reported: 10/31/2018 Physicians: Braeden Chavez MD PHYSICIAN EMERGENCY DEPT Specimen(s) Received GALLBLADDER Clinical History Cholecystitis Final Diagnosis GALLBLADDER, LAPAROSCOPIC CHOLECYSTECTOMY: ACUTE AND CHRONIC GANGRENOUS CHOLECYSTITIS WITH CHOLELITHIASIS. Electronically Signed Olga Lidia Hutchins M.D. Gross Description Received in formalin, labeled "gallbladder," is a 6 x 2.5 x 0.5 cm. gallbladder with a 0.5 cm. in length portion of cystic duct attached. The outer surface is disrupted and shaggy. The lumen contains numerous yellow stones ranging in size from 0.2-0.3 cm. The mucosa is green with focal hemorrhage and necrosis. The wall of the gallbladder measures up to 0.2 cm. in thickness. Photographic Developer [employer]inter sections are submitted in one cassette. MLSZ/10/28/2018 cristina/10/28/2018
== END 2018-10-30 12:01 | disposition home or self-care (01) | DRG 493 ==
LOC: JER 04:23 → JERBED 10:00 → J7W 17:52
PROVIDERS: ADMIT Internal Medicine; ATTEND Internal Medicine
PROC: 0FT44ZZ Resection of Gallbladder, Percutaneous Endoscopic Approach (ICD-10-PCS; principal; 2018-10-28 12:00)
DX: K80.12 Calculus of gallbladder with acute and chronic cholecystitis without obstruction (principal); E87.2 Acidosis; E86.0 Dehydration; E66.9 Obesity, unspecified; Z68.31 Body mass index [BMI] 31.0-31.9, adult; D72.829 Elevated white blood cell count, unspecified
CPT/HCPCS: 36415; 71045-TC-FY; 76705-TC; 80048; 80053; 81003; 82550; 83605; 83690; 83735; 84100; 84484; 84702; 85025; 85610; 86850; 86900; 86901; 87040; 88304-TC; 93005; 93010; 94760; 99285-25; J7030